=== PATIENT | male | born 1990 | race African-American/Black ===

== ENCOUNTER 2020-01-28 16:49 | Emergency (ER) | payer MEDICAID ==
[~2020-01-28] VITALS: Ht 175.3 cm; Wt 65.9 kg
[2020-01-28 16:50] VITALS: BP 149/97
[2020-01-28] MEDS ORDERED: ALBU8HFA PO (16:57)
== END 2020-01-28 17:06 | disposition home or self-care (01) ==
LOC: ER 16:49
DX: R05 Cough (principal); Z76.0 Encounter for issue of repeat prescription
CPT/HCPCS: 99281